=== PATIENT | male | born 1995 | race Two or more races ===

== ENCOUNTER 2024-08-09 10:58 | Emergency (ER) | payer OTHER ==
[~2024-08-09] VITALS: Ht 180.3 cm; Wt 83.9 kg
== END 2024-08-09 16:47 | disposition home or self-care (01) ==
LOC: ER 11:01
DX: S40.021A Contusion of right upper arm, initial encounter (principal); X58.XXXA Exposure to other specified factors, initial encounter; Y93.89 Activity, other specified; Y92.69 Other specified industrial and construction area as the place of occurrence of the external cause; Y99.8 Other external cause status